=== PATIENT | female | born 1995 | race Hispanic/Latino ===

== ENCOUNTER 2023-03-11 15:17 | Emergency (ER) | payer SELFPAY ==
[2023-03-11] MEDS ORDERED: Sodium Chloride 0.9% 1,000 ML IV ONE (16:07)
[2023-03-11] MEDS ORDERED: Ketorolac 30 MG/ML SDV IVPUSH ONE (16:07)
[2023-03-11] MEDS ORDERED: Ondansetron 4 MG/2 ML SDV IVPUSH ONE (16:07)
[2023-03-11 17:06] LABS: CARBON DIOXIDE,CO2 24.2 mmol/L (21.0-32.0); POTASSIUM,K 3.5 mmol/L (3.5-5.1)
[2023-03-11] MEDS ORDERED: Iopamidol 755 MG/ML 500 ML Multipack Bottle IVPUSH ONE (17:25)
== END 2023-03-11 19:07 | disposition home or self-care (01) ==
LOC: MW.ED 15:17
DX: N83.201 Unspecified ovarian cyst, right side (principal); N83.202 Unspecified ovarian cyst, left side
CPT/HCPCS: 36415; 74177; 80053; 81001; 81025; 83690; 83735; 85025; 96361; 96374; 96375; 99284; J1885; J2405; J7030; Q9967

== ENCOUNTER 2025-06-01 18:12 | Emergency (ER) | payer SELFPAY ==
[2025-06-01] MEDS ORDERED: Sodium Chloride 0.9% 2.5 ML Syringe FLUSH PRN (21:38)
[2025-06-01] MEDS ORDERED: Sodium Chloride 0.9% 10 ML Syringe FLUSH PRN (21:38)
[2025-06-01 22:03] LABS: BASOPHILS ABSOLUTE AUTO 0.04 K/uL (0.00-0.20); BASOPHILS PERCENT AUTO 0.3 % (0.0-1.0); EOSINOPHILS ABSOLUTE AUTO 0.00 K/uL (0.00-0.45); EOSINOPHILS PERCENT AUTO 0.0 % (0.0-6.0); IMMATURE GRAN ABSOLUTE AUTO 0.04 K/uL (0.00-0.05); IMMATURE GRAN PERCENT AUTO 0.3 % (0.0-0.4); LYMPHOCYTES ABSOLUTE AUTO 1.68 K/uL (1.00-4.80); LYMPHOCYTES PERCENT AUTO 12.6 % (24.0-44.0); MEAN PLATELET VOLUME 10.7 fL (9.4-12.3); MONOCYTES ABSOLUTE AUTO 0.29 K/uL (0.00-0.80); MONOCYTES PERCENT AUTO 2.2 % (0.0-8.0); NEUTROPHILS ABSOLUTE AUTO 11.25 K/uL (1.80-7.70); NEUTROPHILS PERCENT AUTO 84.6 % (41.0-71.0); NRBC ABSOLUTE 0.00 K/uL (0.00-0.02); NRBC PERCENT 0.0 /100WBC (0.0-0.2); PLATELET COUNT,PLT 317 K/uL (150-400); RED BLOOD CELL COUNT 4.60 M/uL (4.10-5.30); WHITE BLOOD CELL COUNT,WBC 13.30 K/uL (3.9-11.3)
[2025-06-01 22:28] LABS: A/G RATIO 0.8 (0.9-1.6); ALANINE AMINOTRANSFERASE,ALT 22 IU/L (14-63); ASPARTATE AMNIOTRANSFERASE,AST 18 IU/L (15-37); BILIRUBIN TOTAL 0.6 mg/dL (0.2-1.0); BLOOD UREA NITROGEN,BUN 9 mg/dL (7.0-18.0); CARBON DIOXIDE,CO2 29.9 mmol/L (21.0-32.0); CHLORIDE,CL 103 mmol/L (98-107); CREATININE 0.6 mg/dL (0.6-1.0); EST CRCL DRUG DOSING (CG) 129.51 mL/min; ESTIMATED GFR 125 mL/min (>60); GLUCOSE RANDOM 105 mg/dL (74-106); POTASSIUM,K 4.0 mmol/L (3.5-5.1); PROTEIN TOTAL,TP 8.1 g/dL (6.4-8.2); SODIUM,NA 138 mmol/L (136-145)
== END 2025-06-02 00:21 | disposition home or self-care (01) ==
LOC: MW.ED 18:12
DX: J01.00 Acute maxillary sinusitis, unspecified (principal); Z79.899 Other long term (current) drug therapy
CPT/HCPCS: 36415; 70450; 71045; 80053; 83690; 83735; 84484; 84703; 85025; 93005; 96360; 99285; J7030